=== PATIENT | male | born 1960 | race Two or more races ===

== ENCOUNTER 2018-07-01 15:26 | Outpatient (CLI) | payer OTHER ==
[~2018-07-01 15:26] MED LIST: DIOVAN HCT 1601 EACH
== END 2018-07-01 15:37 | disposition home or self-care (01) ==
LOC: RAD 15:26
DX: M25.571 Pain in right ankle and joints of right foot (principal); M79.671 Pain in right foot

== ENCOUNTER → 2019-04-02 | Outpatient (CLI) | payer OTHER | END | disposition home or self-care (01) | LOC: RAD 12:33 | DX: S92.342A Displaced fracture of fourth metatarsal bone, left foot, initial encounter for closed fracture (principal) ==

== ENCOUNTER 2020-02-14 14:11 | Outpatient (CLI) | payer OTHER | END 2020-02-14 14:48 | disposition home or self-care (01) | LOC: RAD 14:11 | PROVIDERS: ATTEND General Practice | DX: R05 Cough (principal) ==

== ENCOUNTER 2021-11-02 13:23 | Outpatient (CLI) | payer OTHER | END 2021-11-02 13:25 | disposition home or self-care (01) | LOC: NUCLEAR 13:23 | DX: M81.0 Age-related osteoporosis without current pathological fracture (principal); M85.89 Other specified disorders of bone density and structure, multiple sites ==

== ENCOUNTER 2023-11-12 13:55 | Outpatient (CLI) | payer OTHER | END 2023-11-12 14:01 | disposition home or self-care (01) | LOC: RAD 13:55 | PROVIDERS: ATTEND Internal Medicine Rheumatology | DX: M06.09 Rheumatoid arthritis without rheumatoid factor, multiple sites (principal); M15.0 Primary generalized (osteo)arthritis ==

== ENCOUNTER 2023-11-14 08:28 | Outpatient (CLI) | payer OTHER | END 2023-11-14 08:47 | disposition home or self-care (01) | LOC: SONOGRAMA 08:28 | PROVIDERS: ATTEND Internal Medicine | DX: R74.01 Elevation of levels of liver transaminase levels (principal) ==

== ENCOUNTER 2024-06-16 11:40 | Outpatient (CLI) | payer OTHER | END 2024-06-16 12:00 | disposition home or self-care (01) | LOC: TOM 11:40 → NUCLEAR 06-25 13:45 | DX: E78.00 Pure hypercholesterolemia, unspecified (principal); C46.0 Kaposi's sarcoma of skin; B20 Human immunodeficiency virus [HIV] disease ==

== ENCOUNTER → 2024-06-25 09:51 | Outpatient (CLI) | payer OTHER | END | disposition home or self-care (01) | LOC: NUCLEAR 09:51 | PROVIDERS: ATTEND Internal Medicine Hematology & Oncology | DX: M85.80 Other specified disorders of bone density and structure, unspecified site (principal); M81.0 Age-related osteoporosis without current pathological fracture ==

== ENCOUNTER 2024-07-12 15:10 | Outpatient (CLI) | payer OTHER | END 2024-07-12 15:11 | disposition home or self-care (01) | LOC: SONOGRAMA 15:10 | PROVIDERS: ATTEND Internal Medicine Hematology & Oncology | DX: E04.1 Nontoxic single thyroid nodule (principal) ==

== ENCOUNTER 2024-08-02 14:40 | Outpatient (CLI) | payer OTHER ==
[~2024-08-02 14:40] MED LIST changes: +ATACAND HCT 321 EACH PO; +GENVOYA TABLET1 EACH PO; +MILLIPRED5 MG PO; +OMEPRAZOLE-BIC1 EAC1 PO; +PEPCID40 MG PO; +ROSUVASTATIN CA10 MG PO
== END 2024-08-02 14:42 | disposition home or self-care (01) ==
LOC: SONOGRAMA 14:40
PROVIDERS: ATTEND Pathology Anatomic Pathology
DX: D34 Benign neoplasm of thyroid gland (principal); E07.89 Other specified disorders of thyroid; E04.1 Nontoxic single thyroid nodule

== ENCOUNTER 2024-08-03 07:48 | Day surgery (SDC) | payer OTHER ==
[2024-07-30 11:07] VITALS: BP 130/78
[~2024-08-03] VITALS: Ht 185.4 cm; Wt 95.3 kg
[2024-08-03] MEDS ORDERED: CEFAZOLIN SODIUM 1,000 MG VIAL ONE ×2 (10:14→16:15)
[2024-08-03] MEDS ORDERED: LIDOCAINE HCL 1% 20 ML VIAL IJ ONE (13:01)
[2024-08-03] MEDS ORDERED: HEPARIN SODIUM,PORCINE/PF 100 UNIT/ML SYRINGE IV ONE (13:02)
[2024-08-03] MEDS ORDERED: CEFAZOLIN SODIUM 1,000 MG VIAL IV SCH (16:00)
[2024-08-03] MEDS ORDERED: FAMOTIDINE/PF 20 MG/10 ML SYRINGE IV SCH (16:00)
[2024-08-03] MEDS ORDERED: FAMOTIDINE/PF 20 MG/2 ML VIAL ONE (16:16)
== END 2024-08-03 17:05 | disposition home or self-care (01) ==
LOC: CIR.AMB 07:48
PROVIDERS: ATTEND Specialist
DX: C46.0 Kaposi's sarcoma of skin (principal)
CPT/HCPCS: 36561; C1751

== ENCOUNTER 2024-08-09 11:33 | Outpatient (CLI) | payer OTHER | END 2024-08-09 11:35 | disposition home or self-care (01) | LOC: NUCLEAR 11:33 | PROVIDERS: ATTEND Internal Medicine Hematology & Oncology | DX: C46.0 Kaposi's sarcoma of skin (principal) ==